=== PATIENT | female | born 1995 | race Caucasian/White ===

== ENCOUNTER 2017-06-22 14:46 | Emergency (ER) | payer OTHER ==
[~2017-06-22] VITALS: Ht 152.4 cm; Wt 72.6 kg
[~2017-06-22 14:46] MED LIST: SERTRALINE HCL50 MG
[2017-06-22] MEDS ORDERED: OSEL75CA PO (19:31)
== END 2017-06-22 21:27 | disposition home or self-care (01) ==
LOC: ER 14:46
DX: J11.1 Influenza due to unidentified influenza virus with other respiratory manifestations (principal); R50.9 Fever, unspecified

== ENCOUNTER 2017-12-13 07:34 | Emergency (ER) | payer OTHER ==
[~2017-12-13] VITALS: Ht 152.4 cm; Wt 74.8 kg
[~2017-12-13 07:34] MED LIST changes: +OSEL75CA PO
[2017-12-13] MEDS ORDERED: ZOLOFT50 MG (07:46)
== END 2017-12-13 09:10 | disposition home or self-care (01) ==
LOC: ER 07:34
DX: J02.9 Acute pharyngitis, unspecified (principal)

== ENCOUNTER 2017-12-19 02:23 | Emergency (ER) | payer OTHER ==
[~2017-12-19] VITALS: Ht 152.4 cm; Wt 63.5 kg
[~2017-12-19 02:23] MED LIST changes: +ZOLOFT50 MG
[2017-12-19] MEDS ORDERED: ATIVAN1 MG PO (08:22)
== END 2017-12-19 08:43 | disposition home or self-care (01) ==
LOC: ER 02:23
DX: F23 Brief psychotic disorder (principal); F30.8 Other manic episodes